=== PATIENT | female | born 1980 | race Caucasian/White ===

== ENCOUNTER 2017-11-13 15:45 | Emergency (ER) | payer SELFPAY ==
--- NOTE | 2017-11-13 17:17 | RAD ---
PA VIEW CHEST WITH TWO VIEWS LEFT CHEST WALL: INDICATIONS: History of chest wall pain. FINDINGS: The lungs are clear. The cardiomediastinal silhouette is within normal limits. No pleural effusion or pneumothorax is evident. No displaced left lateral rib fracture is evident. IMPRESSION: 1. No displaced left-sided rib fracture. 2. No pneumothorax demonstrated. POS: [facility]
== END 2017-11-13 16:51 | disposition home or self-care (01) ==
LOC: NAV ERS 15:45
DX: R07.2 Precordial pain (principal); F17.210 Nicotine dependence, cigarettes, uncomplicated